=== PATIENT | female | born 1990 | race Caucasian/White ===

== ENCOUNTER → 2016-12-07 | Outpatient (CLI) | payer OTHER, MEDICARE ==
[~2016-12-07] MED LIST: ANAPROX DS550 MG PO; AUGMENTIN 875 M1 TAB PO; FLAGYL500 MG PO; FLEXERIL10 MG PO; KEFLEX500 MG PO; MOTRIN800 MG PO; Motrin,Rufen800 MG PO; NKHM; PERCOCET 325 MG1 TA2 PO; PREDNICOT20 MG PO; REGLAN5 MG PO; TORADOL10 MG PO; TRAMADOL HCL50 MG PO; VICODIN 5/500 505 MG PO; ZOFRAN ODT8 MG PO; Zofran4 MG PO
[2016-12-07 15:19] LABS: URINE AMPHETAMINES < 1000 (1000ng/ml); URINE BARBITURATES < 200 (200ng/ml); URINE COCAINE < 300 (300ng/ml)
== END | disposition home or self-care (01) ==
LOC: LAB 13:24
PROVIDERS: Internal Medicine
DX: F11.20 Opioid dependence, uncomplicated (principal)

== ENCOUNTER → 2017-06-23 | Outpatient (CLI) | payer OTHER ==
[2017-06-23 15:47] LABS: URINE AMPHETAMINES < 1000 (1000ng/ml); URINE BARBITURATES < 200 (200ng/ml); URINE BENZODIAZEPINES < 200 (200ng/ml); URINE CANNABINOIDS (THC) > 50 (50ng/ml); URINE COCAINE < 300 (300ng/ml); URINE METHADONE < 300 (300ng/ml); URINE OPIATES < 300 (300ng/ml); URINE PHENCYCLIDINE < 25 (25ng/ml)
== END | disposition home or self-care (01) ==
LOC: LAB 15:17
PROVIDERS: Internal Medicine
DX: F11.20 Opioid dependence, uncomplicated (principal)

== ENCOUNTER → 2017-08-21 | Outpatient (CLI) | payer OTHER ==
[2017-08-21 14:30] LABS: URINE AMPHETAMINES < 1000 (1000ng/ml); URINE BARBITURATES < 200 (200ng/ml)
[2017-08-21 14:34] LABS: URINE BENZODIAZEPINES < 200 (200ng/ml); URINE CANNABINOIDS (THC) > 50 (50ng/ml); URINE COCAINE < 300 (300ng/ml); URINE METHADONE < 300 (300ng/ml); URINE OPIATES < 300 (300ng/ml)
[2017-08-21 14:35] LABS: URINE PHENCYCLIDINE < 25 (25ng/ml)
== END | disposition home or self-care (01) ==
LOC: LAB 11:05
PROVIDERS: Internal Medicine
DX: F11.20 Opioid dependence, uncomplicated (principal)

== ENCOUNTER → 2018-03-29 | Outpatient (CLI) | payer OTHER ==
[~2018-03-29] MED LIST changes: +NAPROSYN500 MG PO
== END | disposition home or self-care (01) ==
LOC: RAD 10:01
DX: R07.9 Chest pain, unspecified (principal); R05 Cough; R09.89 Other specified symptoms and signs involving the circulatory and respiratory systems

== ENCOUNTER → 2018-04-05 | Outpatient (CLI) | payer OTHER | END | disposition home or self-care (01) | LOC: CT 07:36 | DX: R91.8 Other nonspecific abnormal finding of lung field (principal); R09.89 Other specified symptoms and signs involving the circulatory and respiratory systems ==

== ENCOUNTER → 2018-08-03 | Outpatient (CLI) | payer OTHER ==
[2018-08-03 10:38] LABS: URINE AMPHETAMINES < 1000 (1000ng/ml); URINE BARBITURATES < 200 (200ng/ml); URINE BENZODIAZEPINES < 200 (200ng/ml); URINE CANNABINOIDS (THC) > 50 (50ng/ml); URINE COCAINE < 300 (300ng/ml); URINE METHADONE < 300 (300ng/ml); URINE OPIATES < 300 (300ng/ml)
[2018-08-03 10:41] LABS: URINE PHENCYCLIDINE < 25 (25ng/ml)
== END | disposition home or self-care (01) ==
LOC: LAB 10:12
PROVIDERS: Internal Medicine
DX: F11.20 Opioid dependence, uncomplicated (principal)

== ENCOUNTER 2018-12-12 09:36 | Emergency (ER) | payer OTHER ==
[~2018-12-12] VITALS: Ht 175.2 cm; Wt 56.7 kg
[2018-12-12 10:11] LABS: BASO # 0.1 10*3/uL (0.0-0.1); BASO % 0.7 % (0.0-1.0); EOS # 0.2 10*3/uL (0.0-0.4); EOS % 2.8 % (1.0-4.0); HEMATOCRIT 38.8 % (37.0-47.0); HEMOGLOBIN 12.5 g/dl (12.0-16.0); LYMPH # 2.4 10*3/uL (1.3-4.4); LYMPH % 29.6 % (27.0-41.0); MEAN CELL VOLUME 95.3 fl (81.0-99.0); MEAN CORPUSCULAR HGB 30.7 pg (27.0-31.0); MEAN CORPUSCULAR HGB CONC 32.2 g/dl (33.0-37.0); MEAN PLATELET VOLUME 9.2 fl (9.6-12.3); MONO # 0.6 10*3/uL (0.1-1.0); MONO % 6.9 % (3.0-9.0); NEUT # 4.8 10*3/uL (2.3-7.9); NEUT % 59.4 % (47.0-73.0); PLATELET COUNT AUTOMATED 352 10*3/uL (130-400); RED BLOOD COUNT 4.07 10*6/uL (4.10-5.10); RED CELL DISTRI WIDTH 12.4 % (0-14.5); WHITE BLOOD COUNT 8.1 10*3/uL (4.8-10.8)
[2018-12-12 10:26] LABS: ALBUMIN 3.1 gm/dl (3.1-4.5); ALKALINE PHOSPHATASE 95 U/L (45-117); BUN 9 mg/dl (7-24); CHLORIDE 107 mmol/L (98-107); CREATININE 0.65 mg/dL (0.55-1.02); POTASSIUM 4.3 mmol/L (3.5-5.1); SGOT/AST 10 IU/L (3-35); SGPT/ALT 24 U/L (12-78); SODIUM 142 mmol/L (136-145); TOTAL PROTEIN 6.9 gm/dL (6.4-8.2)
[2018-12-12 10:45] LABS: BILIRUBIN NEGATIVE (NEGATIVE); BLOOD NEGATIVE (NEGATIVE); CLARITY CLEAR (CLEAR); COLOR YELLOW (YELLOW); GLUCOSE NEGATIVE (NEGATIVE); KETONE NEGATIVE (NEGATIVE); LEUKO ESTERASE NEGATIVE (NEGATIVE); NITRITE NEGATIVE (NEGATIVE); PH 6.5 (5.0-9.0); SPECIFIC GRAVITY 1.015 (1.005-1.030); UROBILINOGEN 0.2 E.U./dl (0.2-1.0)
[2018-12-12 11:02] LABS: BACTERIA 2+; EPITHELIAL CELLS 21-30; RBC 0-2 rbc/hpf (0-2); WBC 0-2 wbc/hpf (0-5)
[2018-12-12] MEDS ORDERED: ROBITUSSIN DM 101 OZ PO (11:12)
[2018-12-12] MEDS ORDERED: IBU800 MG PO (11:12)
[2018-12-12] MEDS ORDERED: DOXYCYCLINE100 M3 PO (11:12)
[2018-12-12] MEDS ORDERED: PREDNISONE20 M1 PO (11:12)
== END 2018-12-12 11:20 | disposition home or self-care (01) ==
LOC: ED 09:36
PROVIDERS: Nurse Practitioner Family
DX: J18.9 Pneumonia, unspecified organism (principal); R09.1 Pleurisy; R19.7 Diarrhea, unspecified; H57.89 Other specified disorders of eye and adnexa; F17.290 Nicotine dependence, other tobacco product, uncomplicated

== ENCOUNTER → 2019-02-25 | Outpatient (CLI) | payer OTHER ==
[~2019-02-25] MED LIST changes: +DOXYCYCLINE100 M3 PO; +IBU800 MG PO; +PREDNISONE20 M1 PO; +ROBITUSSIN DM 101 OZ PO
== END | disposition home or self-care (01) ==
LOC: RAD 16:29
DX: J18.9 Pneumonia, unspecified organism (principal)

== ENCOUNTER → 2019-09-10 | Outpatient (CLI) | payer OTHER ==
[2019-09-10 11:51] LABS: URINE AMPHETAMINES < 1000 (1000ng/ml); URINE BARBITURATES < 200 (200ng/ml); URINE BENZODIAZEPINES < 200 (200ng/ml); URINE CANNABINOIDS (THC) > 50 (50ng/ml); URINE COCAINE < 300 (300ng/ml); URINE METHADONE < 300 (300ng/ml); URINE OPIATES < 300 (300ng/ml); URINE PHENCYCLIDINE < 25 (25ng/ml)
== END | disposition home or self-care (01) ==
LOC: LAB 11:19
PROVIDERS: Internal Medicine
DX: F11.20 Opioid dependence, uncomplicated (principal)

== ENCOUNTER → 2020-03-04 | Outpatient (CLI) | payer OTHER | END | disposition home or self-care (01) | LOC: CP 14:27 | PROVIDERS: ATTEND Nurse Practitioner | DX: R06.02 Shortness of breath (principal) ==